=== PATIENT | female | born 1965 | race Caucasian/White ===

== ENCOUNTER 2019-06-28 13:37 | Outpatient (CLI) | payer OTHER ==
--- NOTE | 2019-06-28 14:49 | MRI ---
MRI cervical spine noncontrast HISTORY: Neck pain. Cervical stenosis. FINDINGS: There is reversal of the normal lordotic curvature. Desiccation of all of the intervertebra l discs. Vertebral body heights are maintained. Bone marrow signal within normal limits. C2-3: Mild osteophytosis. Central canal and neural foramina are patent. C3-4: There is 0.2 cm spondylolisthesis. Posterior osteophyte/disc complex and circumferential degene rative changes. Mild stenosis of the central canal. Severe stenosis of the right neural foramen. Left neural foramen is patent. C4-5: Minimal degenerative spondylolisthesis. Posterior osteophyte/disc complex and circumferential d egenerative changes. Mild stenosis of the central canal and left neural foramen. Right neural foramen is patent. C5-6: Mild disc space narrowing. Posterior osteophyte/disc complex and circumferential degenerative c hanges. Mild stenosis of the central canal. Neural foramina are patent. C6-7: Disc space narrowing. Posterior disc bulge without significant central canal stenosis. Degenera tive changes of the facets. Neural foramina are patent. 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 C7-T1: Mild osteophytosis. Central canal and neural foramina are patent. IMPRESSION: Multilevel degenerative changes as detailed above. Stenosis most pronounced at the right C3-4 neural foramen. Clinical correlation regarding the right C4 dermatome is required.
--- NOTE | 2019-06-28 15:02 | RAD ---
XR Cervical Sp Com W/Obl Fl/Ex: 06/28/2019 12:00 AM CLINICAL HISTORY: Spinal stenosis COMPARISON: MR cervical spine dated June 28, 2019 Bones: No acute fracture demonstrated. There is diffuse osteopenia Intervertebral disc spaces and facet complexes: There is moderate disc degenerative disease at C4-5, C5-6 and C6-7. There is advanced facet osteoarthrosis at C3-4 and C4-5. There is mild/moderate to severe right C1-C2 facet complex degenerative change. There is moderate left facet complex degenerati ve change at C1-C2. Spinal alignment: There is mild anterior translation of C3 on C4. This is slightly accentuated with f lexion and does not completely reduce with extension. Prevertebral soft tissues: Normal. Lateral masses: Symmetric. Lung apices: Clear. Additional findings: There is postsurgical change involving the mandibular angle bilaterally. IMPRESSION: Moderate cervical spondylosis. Mild anterior translation of motion of C3 on C4 with flexion. This minor s not reduce with neutral or extension positioning.
== END 2019-06-28 13:38 | disposition home or self-care (01) ==
LOC: SCSMRI 13:37
PROVIDERS: ATTEND Anesthesiology Pain Medicine
DX: M48.02 Spinal stenosis, cervical region (principal); M06.9 Rheumatoid arthritis, unspecified; M47.812 Spondylosis without myelopathy or radiculopathy, cervical region
CPT/HCPCS: 72052; 72141

== ENCOUNTER 2020-04-19 17:04 | Outpatient (CLI) | payer OTHER ==
[2020-04-20 01:30] LABS: SARS-CoV-2 MS2 Positive; SARS-CoV-2 N Gene Positive; SARS-CoV-2 S Gene Positive; SARS-CoV-2 by NAA DETECTED (NotDetected); SARS-CoV-2 orf1ab Positive
== END 2020-04-19 17:05 | disposition home or self-care (01) ==
LOC: LABBT 17:04
PROVIDERS: ATTEND Orthopaedic Surgery
DX: U07.1 COVID-19 (principal); Z01.812 Encounter for preprocedural laboratory examination; T84.028A Dislocation of other internal joint prosthesis, initial encounter
CPT/HCPCS: 87635; U0003

== ENCOUNTER 2020-05-18 07:28 | Day surgery (SDC) | payer OTHER ==
[2020-05-16 12:37] VITALS: BMI 21.1
[2020-05-18] MEDS ORDERED: Glycopyrrolate 0.2 MG/ML 5 ML SYRINGE ONE (10:21)
[2020-05-18] MEDS ORDERED: Succinylcholine 200 MG/10 ml SYRINGE FS ONE (10:21)
--- NOTE | 2020-05-18 14:24 | OP ---
DATE OF PROCEDURE: 05/18/2020 INDICATIONS: Ms. Chong has dislocated right multi-revision reverse total shoulder. Shoulder dislocates all the time on her. Her usually reduced it and unfortunately he has . We felt we would try closed reduction in the office, which failed, attempted closed reduction scheduling about a month ago, but she became ill with the coronavirus and we had to delay even further. Today, in the operating room under complete general anesthesia with complete paralysis and under C-arm visualization, I was unable to reduce her shoulder after multiple attempts. I did communicate this with her daughter. She will need to follow up with Dr. Montero in [place] for possible open reduction or revision. Job ID: [id number]
== END 2020-05-18 11:45 | disposition home or self-care (01) ==
LOC: SDC 07:28
PROVIDERS: ATTEND Orthopaedic Surgery
PROC: 0RSJXZZ Reposition Right Shoulder Joint, External Approach (ICD-10-PCS; principal; 2020-05-18)
DX: T84.028A Dislocation of other internal joint prosthesis, initial encounter (principal); M06.9 Rheumatoid arthritis, unspecified; D64.9 Anemia, unspecified; Z53.09 Procedure and treatment not carried out because of other contraindication; Z88.8 Allergy status to other drugs, medicaments and biological substances; Z79.899 Other long term (current) drug therapy; Z96.611 Presence of right artificial shoulder joint; Z96.612 Presence of left artificial shoulder joint; Z96.643 Presence of artificial hip joint, bilateral; Z96.653 Presence of artificial knee joint, bilateral
CPT/HCPCS: 76000

== ENCOUNTER 2024-05-25 11:52 | Outpatient (CLI) | payer BC | END 2024-05-25 11:53 | disposition home or self-care (01) | LOC: SCSRAD 11:52 | PROVIDERS: ATTEND Family Medicine | DX: Z01.818 Encounter for other preprocedural examination (principal); J98.4 Other disorders of lung; Z96.612 Presence of left artificial shoulder joint; Z96.611 Presence of right artificial shoulder joint; Z90.49 Acquired absence of other specified parts of digestive tract; Z98.890 Other specified postprocedural states | CPT/HCPCS: 71046 ==

== ENCOUNTER 2025-02-04 09:45 | Outpatient (CLI) | payer OTHER | END 2025-02-04 09:46 | disposition home or self-care (01) | LOC: SCSRAD 09:45 | PROVIDERS: ATTEND Family Medicine | DX: Z01.818 Encounter for other preprocedural examination (principal); R93.7 Abnormal findings on diagnostic imaging of other parts of musculoskeletal system; Z96.612 Presence of left artificial shoulder joint | CPT/HCPCS: 71046 ==